=== PATIENT | male | born 1965 | race Caucasian/White ===

== ENCOUNTER → 2017-12-08 | Outpatient (CLI) | payer OTHER | END | disposition home or self-care (01) | LOC: KCIC MRI 14:26 | DX: S93.491A Sprain of other ligament of right ankle, initial encounter (principal); M85.671 Other cyst of bone, right ankle and foot; M25.471 Effusion, right ankle; R60.0 Localized edema; X58.XXXA Exposure to other specified factors, initial encounter; Y93.89 Activity, other specified; Y92.89 Other specified places as the place of occurrence of the external cause; Y99.8 Other external cause status | CPT/HCPCS: 73721 ==